=== PATIENT | female | born 1955 | race Caucasian/White ===

== ENCOUNTER 2017-11-06 07:25 | Day surgery (SDC) | payer MEDICARE, MEDICAID ==
[2017-11-06] VITALS (9 sets, daily range): BP systolic 104–134; BP diastolic 80–98
[~2017-11-06] VITALS: Ht 177.8 cm; Wt 131.0 kg
[~2017-11-06 07:25] MED LIST: ACET1TAB12 PO; CARV6.253 PO; DOCU100C40 PO; FERR134T2 PO; FURO-149 PO; GABA-532 PO; LEVO125T PO; MULT-38 PO; POTA20TA19 PO; VIT1TABL91 PO; WARF4TAB7 PO
[2017-11-06] MEDS ORDERED: normal saline 1000ml 1,000 ML IV PRN (07:55)
[2017-11-06] MEDS ORDERED: albumin (human) 25% 100 ML IV solution IV PRN (07:55)
[2017-11-06] MEDS ORDERED: LISI-604 PO (08:47)
[2017-11-06] MEDS ORDERED: FERR325T28 PO (08:47)
[2017-11-06] MEDS ORDERED: OMEP20TA5 PO (08:47)
[2017-11-06] MEDS ORDERED: ALLO300T2 PO (08:47)
[2017-11-06] MEDS ORDERED: SPIR25TA3 PO (08:47)
[2017-11-06] MEDS ORDERED: ZAR2.5T PO (08:47)
[2017-11-06] MEDS ORDERED: ASCO500C15 PO (08:47)
[2017-11-06] MEDS ORDERED: LORA-660 PO (08:47)
[2017-11-06] MEDS ORDERED: GABA-530 PO (08:47)
[2017-11-06] MEDS ORDERED: FURO40TA4 PO (08:47)
[2017-11-06] MEDS ORDERED: LEVO150T8 PO (08:47)
[2017-11-06] MEDS ORDERED: MAGN400O6 PO (08:47)
== END 2017-11-06 11:22 | disposition home or self-care (01) ==
LOC: SSTAY O 07:25
PROVIDERS: ATTEND Radiology Vascular & Interventional Radiology
DX: R18.8 Other ascites (principal); Z88.6 Allergy status to analgesic agent; Z88.8 Allergy status to other drugs, medicaments and biological substances; Z79.899 Other long term (current) drug therapy
CPT/HCPCS: 49083; A6257; A6449; J7030; P9047

== ENCOUNTER 2017-11-20 10:17 | Day surgery (SDC) | payer MEDICARE, MEDICAID ==
[2017-11-20] VITALS (7 sets, daily range): BP systolic 94–121; BP diastolic 41–74
[~2017-11-20 10:17] MED LIST changes: -ACET1TAB12 PO; +ALLO300T2 PO; +ASCO500C15 PO; -FERR134T2 PO; +FERR325T28 PO; -FURO-149 PO; +FURO40TA4 PO; +GABA-530 PO; -GABA-532 PO; -LEVO125T PO; +LEVO150T8 PO; +LIDOcaine 1% 30ml vial SQ STA; +LISI-604 PO; +LORA-660 PO; +MAGN400O6 PO; +OMEP20TA5 PO; +SPIR25TA3 PO; +ZAR2.5T PO
[2017-11-20] MEDS ORDERED: normal saline 1000ml 1,000 ML IV PRN (10:45)
[2017-11-20] MEDS ORDERED: albumin (human) 25% 100 ML IV solution IV PRN (10:45)
[2017-11-20 12:56] LABS: INR 2.1 INR; PROTHROMBIN TIME 20.9 SECONDS (9.0-12.0)
== END 2017-11-20 15:30 ==
LOC: SSTAY O 10:17
PROVIDERS: ATTEND Radiology Vascular & Interventional Radiology
DX: R18.8 Other ascites (principal); I48.91 Unspecified atrial fibrillation; I13.0 Hypertensive heart and chronic kidney disease with heart failure and stage 1 through stage 4 chronic kidney disease, or unspecified chronic kidney disease; N18.3 Chronic kidney disease, stage 3 (moderate); I50.9 Heart failure, unspecified; E03.9 Hypothyroidism, unspecified; G47.33 Obstructive sleep apnea (adult) (pediatric); K21.9 Gastro-esophageal reflux disease without esophagitis; I27.20 Pulmonary hypertension, unspecified; Z53.8 Procedure and treatment not carried out for other reasons; Z79.01 Long term (current) use of anticoagulants; Z88.1 Allergy status to other antibiotic agents; Z88.6 Allergy status to analgesic agent; Z79.899 Other long term (current) drug therapy; Z88.8 Allergy status to other drugs, medicaments and biological substances; Z95.0 Presence of cardiac pacemaker
CPT/HCPCS: 36415; 49083; 85610; A6257; J7030; P9047

== ENCOUNTER 2017-12-04 08:01 | Day surgery (SDC) | payer MEDICARE, MEDICAID ==
[2017-12-04] VITALS (8 sets, daily range): BP systolic 57–105; BP diastolic 55–73
[~2017-12-04 08:01] MED LIST changes: -LIDOcaine 1% 30ml vial SQ STA; -LISI-604 PO; -MULT-38 PO
[2017-12-04] MEDS ORDERED: normal saline 1000ml 1,000 ML IV PRN (08:25)
[2017-12-04] MEDS ORDERED: CYAN-19 PO (08:33)
[2017-12-04] MEDS: albumin (human) 25% 100 ML IV solution IV PRN ×2 (09:04→09:40)
== END 2017-12-04 11:58 | disposition home or self-care (01) ==
LOC: SSTAY O 08:01
PROVIDERS: ATTEND Radiology Diagnostic Radiology
DX: R18.8 Other ascites (principal); I50.9 Heart failure, unspecified; I48.91 Unspecified atrial fibrillation; Z79.01 Long term (current) use of anticoagulants; Z88.1 Allergy status to other antibiotic agents; Z87.440 Personal history of urinary (tract) infections
CPT/HCPCS: 49083; A6257; A6258; A6449; J7030; P9047

== ENCOUNTER 2017-12-18 07:51 | Day surgery (SDC) | payer MEDICARE, MEDICAID ==
[2017-12-18] VITALS (9 sets, daily range): BP systolic 99–125; BP diastolic 66–80
[~2017-12-18 07:51] MED LIST changes: +CYAN-19 PO
[2017-12-18] MEDS ORDERED: LIDOcaine 1% 30ml vial IJ STA (08:14)
[2017-12-18] MEDS ORDERED: albumin (human) 25% 100 ML IV solution IV PRN (08:15)
[2017-12-18] MEDS ORDERED: normal saline 1000ml 1,000 ML IV PRN (08:15)
== END 2017-12-18 12:25 | disposition home or self-care (01) ==
LOC: SSTAY O 07:51
PROVIDERS: ATTEND Radiology Diagnostic Radiology
DX: R18.8 Other ascites (principal); I48.91 Unspecified atrial fibrillation; I50.9 Heart failure, unspecified; I11.0 Hypertensive heart disease with heart failure; G47.30 Sleep apnea, unspecified; E11.9 Type 2 diabetes mellitus without complications; Z98.890 Other specified postprocedural states; Z79.01 Long term (current) use of anticoagulants; Z88.1 Allergy status to other antibiotic agents; Z88.6 Allergy status to analgesic agent; Z88.8 Allergy status to other drugs, medicaments and biological substances; Z95.0 Presence of cardiac pacemaker
CPT/HCPCS: 49083; A6257; J7030; P9047

== ENCOUNTER 2017-12-30 07:36 | Day surgery (SDC) | payer MEDICARE, MEDICAID ==
[2017-12-30] VITALS (7 sets, daily range): BP systolic 90–114; BP diastolic 54–85
[~2017-12-30] VITALS: Ht 152.4 cm; Wt 108.9 kg
[~2017-12-30 07:36] MED LIST changes: -FURO40TA4 PO
[2017-12-30] MEDS ORDERED: albumin (human) 25% 100 ML IV solution IV PRN (08:15)
[2017-12-30] MEDS ORDERED: normal saline 1000ml 1,000 ML IV PRN (08:15)
[2017-12-30] MEDS ORDERED: FURO40TA4 PO (08:24)
[2017-12-30 08:40] LABS: INR 1.5 INR
== END 2017-12-30 10:50 ==
LOC: SSTAY O 07:36
PROVIDERS: ATTEND Radiology Diagnostic Radiology
DX: R18.8 Other ascites (principal); I50.9 Heart failure, unspecified; I48.91 Unspecified atrial fibrillation; D89.89 Other specified disorders involving the immune mechanism, not elsewhere classified; Z88.1 Allergy status to other antibiotic agents; Z79.01 Long term (current) use of anticoagulants; Z87.440 Personal history of urinary (tract) infections
CPT/HCPCS: 36415; 49083; 85610; A6257; J7030; P9047

== ENCOUNTER 2018-01-07 07:58 | Day surgery (SDC) | payer MEDICARE, MEDICAID ==
[~2018-01-07] VITALS: Ht 152.4 cm; Wt 107.0 kg
[2018-01-07] VITALS (12 sets, daily range): BP systolic 99–132; BP diastolic 59–90
[~2018-01-07 07:58] MED LIST changes: +FURO40TA4 PO
[2018-01-07] MEDS ORDERED: albumin (human) 25% 100 ML IV solution IV PRN (08:25)
[2018-01-07] MEDS ORDERED: normal saline 1000ml 1,000 ML IV PRN (08:25)
[2018-01-07 08:44] LABS: INR 1.6 INR; PROTHROMBIN TIME 15.9 SECONDS (9.0-12.0)
== END 2018-01-07 11:40 ==
LOC: SSTAY O 07:58
PROVIDERS: ATTEND Radiology Vascular & Interventional Radiology
DX: R18.8 Other ascites (principal); I50.84 End stage heart failure; G47.33 Obstructive sleep apnea (adult) (pediatric); I13.0 Hypertensive heart and chronic kidney disease with heart failure and stage 1 through stage 4 chronic kidney disease, or unspecified chronic kidney disease; E11.22 Type 2 diabetes mellitus with diabetic chronic kidney disease; N18.3 Chronic kidney disease, stage 3 (moderate); E11.40 Type 2 diabetes mellitus with diabetic neuropathy, unspecified; I48.91 Unspecified atrial fibrillation; K21.9 Gastro-esophageal reflux disease without esophagitis; Z79.01 Long term (current) use of anticoagulants; I51.7 Cardiomegaly; E66.01 Morbid (severe) obesity due to excess calories; Z98.84 Bariatric surgery status; Z90.49 Acquired absence of other specified parts of digestive tract
CPT/HCPCS: 36415; 49083; 85610; A6257; J7030; P9047